=== PATIENT | male | born 2000 | race Caucasian/White ===

== ENCOUNTER 2021-10-27 15:12 | Inpatient (IN) | payer BC, SELFPAY ==
[~2021-10-27] VITALS: Ht 170.2 cm; Wt 70.8 kg
[2021-10-27] MEDS ORDERED: cefOXitin SODIUM 2 GM in D5W 100 ML IV ONE (15:30)
[2021-10-27] MEDS ORDERED: NACL 0.9% 1,000 ML IV ONE (15:30)
[2021-10-27] MEDS ORDERED: cefOXitin SODIUM 2 GM/VIAL (MEFOXIN) ONE (15:41)
--- NOTE | 2021-10-27 15:50 | NUR ---
Pt to bed #6 coming from urgent care ambualtory with steady gait. Pt c/o right lower abdominal pain 5/10 non-radiating. A&Ox4. Skin intact. No chest pain and no sob. Denies n/v. Connected pt to rn cardiac. VSS. Bed in lowest postition. 20g IV placed on left wrist using aseptic technique with no infiltration noted. 1st set of blood cultures drawn and sent to lab.
--- NOTE | 2021-10-27 16:00 | NUR ---
2nd set of blood cultures done and sent to lab.
--- NOTE | 2021-10-27 16:05 | NUR ---
Dr. Chadwick at bedside examining pt.
[2021-10-27 16:57] VITALS: BP_SYST 125
[2021-10-27] MEDS ORDERED: MORPHINE 2 MG/ML INJ. SYRINGE IVP PRN (18:00)
[2021-10-27] MEDS ORDERED: ONDANSETRON HCL 4 MG/2 ML VIAL IVP PRN ×3 (18:00→20:30)
--- NOTE | 2021-10-27 18:30 | NUR ---
Morphine 2mg given IV due to pt stating he is having RLQ pain 10/10 non-radiating. Placed pt in gown and belongings with parents at bedside. Mother and father at bedside.
--- NOTE | 2021-10-27 18:52 | NUR ---
Consent obtained for laprascopic appendectomy possible open and general anasthesia. Pre-op checklist completed.
--- NOTE | 2021-10-27 18:52 | NUR ---
Pre-op nurses at bedside.
--- NOTE | 2021-10-27 19:15 | NUR ---
patient transfered to surgery at this time, accompanied by 2 or nurse in stable condition
[2021-10-27 19:27] LABS: BASOPHILS % (AUTO) 0.2 % (0.0-2.0); EOSINOPHILS # (AUTO) 0.1 K/uL (0.0-0.4); EOSINOPHILS % (AUTO) 0.5 % (0.0-4.0); HEMATOCRIT 47.8 % (36-54); HEMOGLOBIN 16.3 g/dL (14.0-18.0); LYMPHOCYTES # (AUTO) 1.3 K/uL (1.0-5.5); LYMPHOCYTES % (AUTO) 9.5 % (20.5-51.5); MEAN CORPUSCULAR HEMOGLOBIN 29 pg (27-31); MEAN CORPUSCULAR HGB CONC 34 % (32-36); MEAN CORPUSCULAR VOLUME 85 fL (79.0-98.0); MONOCYTES # (AUTO) 0.8 K/uL (0.0-1.0); MONOCYTES % (AUTO) 6.1 % (1.7-9.3); NEUTROPHILS # (AUTO) 11.1 K/uL (1.8-7.7); NEUTROPHILS % (AUTO) 83.7 % (40.0-70.0); PLATELET COUNT (AUTO) 191 K/uL (130-430); RED BLOOD CELL COUNT(AUTO) 5.63 MIL/uL (4.2-6.2); RED CELL DISTRIBUTION WIDTH 13.4 % (9.0-15.0); WHITE BLOOD COUNT (AUTO) 13.3 K/uL (4.8-10.8)
[2021-10-27] MEDS ORDERED: GLYCOPYRROLATE 0.2 MG/ML VIAL ONE (19:30)
[2021-10-27] MEDS ORDERED: PROPOFOL 200MG/ 20ML VIAL (DIPRIVAN) IV ONE (19:30)
[2021-10-27] MEDS ORDERED: fentaNYL CITRATE 250 MCG/5 ML AMP ONE (19:30)
[2021-10-27] MEDS ORDERED: ROCURONIUM BROMIDE 10 MG/ML (ZEMURON) ONE (19:30)
[2021-10-27] MEDS ORDERED: BUPIVACAINE /EPINEPHRINE/PF 0.25% 30 ML VIAL INJ ONE (19:30)
[2021-10-27] MEDS ORDERED: SEVOFLURANE 15 MIN GAS INH ONE (19:30)
[2021-10-27] MEDS ORDERED: LR 1,000 ML IV.SOLN IV ONE (19:30)
[2021-10-27] MEDS ORDERED: ONDANSETRON HCL 4 MG/2 ML VIAL ONE (19:30)
[2021-10-27] MEDS ORDERED: NS IRRIG SOLN 1000 ML IR ONE (19:30)
[2021-10-27] MEDS ORDERED: MIDAZOLAM HCL 5 MG/5 ML VIAL ONE (19:30)
[2021-10-27] MEDS ORDERED: LIDOCAINE/EPI 1% 1:100000 20 ML VIAL INJ ONE (19:30)
[2021-10-27] MEDS ORDERED: PHENYLEPHRINE HCL 10 MG/ML VIAL (NEOSYNEPHRINE) ONE (19:30)
[2021-10-27 19:40] LABS: INR 1.1 (0.80-1.20); PROTHROMBIN TIME 10.7 SECS (9.5-12.5)
[2021-10-27 19:47] LABS: ALBUMIN 4.4 g/dL (3.4-4.8); CALCIUM 10.1 mg/dL (8.4-11.0); CREATININE 1.14 mg/dL (0.55-1.30); POTASSIUM 3.8 mmol/L (3.5-5.1); TOTAL BILIRUBIN 0.9 mg/dL (0.0-1.0)
[2021-10-27] MEDS ORDERED: fentaNYL CITRATE/PF 100 MCG/2 ML AMP IVP PRN ×2 (20:00)
[2021-10-27] MEDS ORDERED: METOCLOPRAMIDE HCL 10 MG/2 ML VIAL IVP PRN (20:00)
[2021-10-27] MEDS ORDERED: MORPHINE 4 MG INJ. 4 MG/ML VIAL IVP PRN (20:30)
[2021-10-27] MEDS ORDERED: HYDROcodone/ACETAMIN 5-325 MG TAB (NORCO/ VICODIN) PO PRN (20:30)
[2021-10-27] MEDS ORDERED: D5NS 1,000 ML IV SCH (20:30)
[2021-10-27] MEDS ORDERED: ACETAMINOPHEN 325 MG TABLET PO PRN (20:30)
[2021-10-27] MEDS ORDERED: fentaNYL CITRATE/PF 100 MCG/2 ML AMP ONE (20:32)
[2021-10-27] MEDS ORDERED: HYDR-3610 PO (20:46)
[2021-10-27] MEDS ORDERED: KETOROLAC TROMETHAMINE 30 MG VIAL ONE (21:02)
[2021-10-27] MEDS ORDERED: MEPERIDINE HCL/PF 25 MG/ML DISP.SYRIN ONE (21:19)
[2021-10-27 21:35] VITALS: BP_SYST 118
--- NOTE | 2021-10-27 21:35 | NUR ---
[place] of Care Pt AAOx4, able to verbalize needs. Pt states no pain or distress at this time on room air. IV sites intact, patent, no infiltration noted with IVF infusing. Situated pt to room and call light. Family present at bedside. No other complaints at this time.
[2021-10-27] MEDS ORDERED: LR 1,000 ML IV ONE (22:00)
[2021-10-27] MEDS ORDERED: PIPERACILLIN/TAZOBACTAM 3.375 GM/VIAL (ZOSYN) IV ONE (22:17)
[2021-10-27] MEDS: PIPERACILLIN/TAZO 3.375 GM in NS 50 ML IV SCH (22:38)
[2021-10-27 23:18] VITALS: BP_SYST 118
--- NOTE | 2021-10-27 23:50 | NUR ---
Rounds Pt states pain at 4/10, states does not want pain medication at this time. Pt also received zosyn IVPB, no adverse reactions noted. Situated pt to call light, educated pt on pain management post surgery, states understanding.
[2021-10-28] VITALS: BP_SYST 107
[2021-10-28 04:00] VITALS: BP_SYST 110
--- NOTE | 2021-10-28 04:00 | NUR ---
Rounds Pt states bearable pain level 1/10, in no acute distress. Pt provided with ice water per clear liquid diet order by .
[2021-10-28] MEDS: PIPERACILLIN/TAZO 3.375 GM in NS 50 ML IV SCH (05:03)
--- NOTE | 2021-10-28 06:23 | NUR ---
Closing Pt states little to no pain. Provided pt with ice and water, tolerated well. IV sites intact, patent, no infiltration noted with IVF. No other complaints at this time. Will endorse plan of care to oncoming RN.
[2021-10-28 07:30] LABS: BASOPHILS # (AUTO) 0.1 K/uL (0.0-0.2); BASOPHILS % (AUTO) 0.7 % (0.0-2.0); EOSINOPHILS # (AUTO) 0.1 K/uL (0.0-0.4); EOSINOPHILS % (AUTO) 0.8 % (0.0-4.0); HEMATOCRIT 39.2 % (36-54); HEMOGLOBIN 13.3 g/dL (14.0-18.0); LYMPHOCYTES # (AUTO) 1.9 K/uL (1.0-5.5); LYMPHOCYTES % (AUTO) 20.3 % (20.5-51.5); MEAN CORPUSCULAR HEMOGLOBIN 29 pg (27-31); MEAN CORPUSCULAR HGB CONC 34 % (32-36); MEAN CORPUSCULAR VOLUME 84 fL (79.0-98.0); MONOCYTES # (AUTO) 0.9 K/uL (0.0-1.0); MONOCYTES % (AUTO) 9.1 % (1.7-9.3); NEUTROPHILS # (AUTO) 6.6 K/uL (1.8-7.7); NEUTROPHILS % (AUTO) 69.1 % (40.0-70.0); PLATELET COUNT (AUTO) 210 K/uL (130-430); RED BLOOD CELL COUNT(AUTO) 4.65 MIL/uL (4.2-6.2); RED CELL DISTRIBUTION WIDTH 13.2 % (9.0-15.0); WHITE BLOOD COUNT (AUTO) 9.5 K/uL (4.8-10.8)
[2021-10-28 08:00] VITALS: BP_SYST 111
--- NOTE | 2021-10-28 08:00 | NUR ---
0710am. received pt awake and alert. No s/s of distress noted. Denies pain or discomfort. Pt reported mild pain when sitting up and turning.
[2021-10-28 12:00] VITALS: BP_SYST 113
[2021-10-28] MEDS ORDERED: PIPERACILLIN/TAZO 3.375 GM in NS 50 ML IV SCH (14:00)
[2021-10-28 14:43] VITALS: BP_SYST 110
--- NOTE | 2021-10-28 15:13 | NUR ---
15:00 Discharge instructions provided to pt and his mom at bedside. All concerns were answered and verbalized understanding of teachings. No s/s of distress. Reports 7-10 pain when coughing but pain subsides when pt is relaxed. IV catheters on left and right forearms were removed-intact and complete. Patient was accompanied to the lobby via wheelchair. 1510 pt left with his mom via private vehicle.
== END 2021-10-28 15:10 | disposition home or self-care (01) | DRG 343 ==
LOC: SED 15:12 → SMU 17:41
PROVIDERS: ADMIT Surgery; ATTEND Surgery
PROC: 0DTJ4ZZ Resection of Appendix, Percutaneous Endoscopic Approach (ICD-10-PCS; principal; 2021-10-27 19:00)
DX: K35.80 Unspecified acute appendicitis (principal); Z20.822 Contact with and (suspected) exposure to COVID-19; J45.909 Unspecified asthma, uncomplicated
CPT/HCPCS: 36415; 80053; 83880; 85025; 85610-TC; 85730-TC; 86886; 86900; 86901; 87040; 88304; 96374; 96375; 99285; C1727; J0694; J1885; J2175; J2250; J2270; J2370; J2405; J2543; J2704; J3010; J3490; J7120